=== PATIENT | female | born 1985 | race Caucasian/White ===

== ENCOUNTER 2017-07-26 07:17 | Inpatient (IN) | payer BC ==
--- NOTE | 2017-07-26 14:21 | HP ---
General Information - General Information Maternal Age: 31 Grav: 2 Para: 0 SAB: 0 IEA: 1 Estimated Due Date: 07/29/17 Determined By: Early Ultrasound Gestational Age in Weeks and Days: 39 Weeks and 4 Days Maternal Blood Type and Rh: O Positive - Results this Serology/RPR Result: Non-Reactive Rubella Result: Immune HBsAg Result: Negative HIV Result: Negative GBS Culture Result: Negative Past Medical History Pertinent Past Medical History: Non-Contributory Past Medical History Comment: Anxiety Pertinent Past Surgical History: See Records Past Surgical History Comment: wisdom teeth Pertinent Family History: Non-Contributory - Antepartal Records Antepartal Records: Reviewed, Uncomplicated Review of Systems Constitutional: Uncomfortable CV Complaint: No Respiratory: Shortness of Breath: No Gastrointestinal: No Nausea/Vomiting, Normal Bowel Movement Genitourinary: Bleeding, No Dysuria, No Leaking Fluid Musculoskeletal: Contractions Neurological: No Headache, No Visual Changes Movement: Normal Exam Allergies/Adverse Reactions: Allergies No Known Allergies Allergy (Verified 07/26/17 07:50) BP 122/75 T 98.6 HR 89 RR 18 O2 99 Lab Values - Entire Visit: pending - Measurements Height: 5 ft 5 in Weight: 181 lb Weight in lbs: 181 Body Mass Index (BMI): 30.1 Pre- Weight: 138 lb Weight Gained This : 43 lbs and 0 ozs - Exam Abdomen: No Upper Quadrant Pain Breast: Breast Exam Deferred Extremities: No Edema Heart: Normal Rhythm/Heart Sounds HEENT: No Significant Findings Lungs: Clear Bilaterally Rectal: Rectal Exam Deferred Reflexes: DTR 2+, - - no clonus - Cervical Exam 3cm/90/0 - Abdominal Exam Abdomen Exam: Non-Tender Abdomen Exam Comment: EFW 7.5lb - Membranes Membrane Status: Intact - Ultrasound/Biophysical Profile Ultrasound Status: Not Done EFM Findings - External Monitor Findings Baseline Heart Rate: 135 External Monitor Findings: Accelerations Present, No Pattern of Variable or Late Decelerations, Variability Moderate Contractions: Regular, Moderate - Q 2-4, Strong, 45-90 Seconds Assessment/Plan - Reason for Visit Reason for Visit: IUP @ 39+4 weeks gestation. IBOW. No sign metabolic acidemia. - Plan Plan: Early Labor Plan Comment: Admit to L&D. Patient desires IDA. Anticipate SVB - Date/Time of Admission Date of Admission: 07/26/17 Time of Admission: 14:05
[2017-07-26] MEDS ORDERED: OBEPIDURAL* 250 ML EPIDURAL ONE (14:25)
[2017-07-26 14:34] LABS: ABS Basophils 0.1 10^3/ul (0-0.2); ABS Eosinophils 0 10^3/ul (0-0.6); ABS Monocytes 0.6 10^3/ul (0-0.8); ABS Neutrophils 12.4 10^3/ul (1.5-7.7); ABS Nucleated RBC 0 10^3/ul; Eosinophil % 0.2 % (0-6); Hematocrit 35 % (35-47); Hemoglobin 11.4 g/dl (12.0-16.0); Lymphocyte % 7.4 % (25-47); Mean Corpuscular HGB Conc 33 g/dl (31-36); Mean Corpuscular Hemoglobin 27 pg (27-31); Mean Corpuscular Volume 83 fL (80-97); Nucleated Red Blood Cells % 0; Platelet Count 208 10^3/ul (150-450); Red Blood Count 4.23 10^6/ul (4.0-5.4); Red Cell Distribution Width 13 % (10.5-15); White Blood Count 14.1 10^3/ul (3.5-10.8)
[2017-07-26] MEDS ORDERED: Sodium Citrate/Citric Acid* 15 ML UDC PO PRN (15:06)
[2017-07-26] MEDS ORDERED: EPHEDrine (Pressors)* 50 MG/ML VIAL IV PUSH PRN ×2 (15:06)
[2017-07-26] MEDS ORDERED: Famotidine TAB* 20 MG PO PRN (15:06)
[2017-07-26] MEDS ORDERED: Phenylephrine IV* 40 MCG/ML 10 ML SYRINGE IV PUSH PRN ×2 (15:06)
[2017-07-26] MEDS ORDERED: OBEPIDURAL* 250 ML EPIDURAL SCH (16:00)
[2017-07-26] MEDS ORDERED: Sodium Bicarbonate 8.4% SYR* 10 ML SYRINGE ONE (16:31)
[2017-07-26] MEDS ORDERED: Lidocaine 2% EPI 1:200000 MPF* 20 ML VIAL ONE (16:31)
[2017-07-26] MEDS ORDERED: Nalbuphine* 20 MG/ML 1 ML VIAL IV PRN (17:00)
[2017-07-26] MEDS ORDERED: CEFOXITIN 2 GM IVPB ONE ×2 (17:00)
[2017-07-26] MEDS ORDERED: oxyCODONE TAB* 5 MG TAB PO PRN (17:00)
[2017-07-26] MEDS ORDERED: ceFOXitin(*) 2 GM in NS 0.9% 100 ML* 100 ML IVPB ONE (17:00)
[2017-07-26] MEDS ORDERED: DiMENhydriNATE IV* 50 MG/ML VIAL IV PUSH PRN (17:00)
[2017-07-26] MEDS ORDERED: Naloxone* 0.4 MG/ML 1 ML VIAL IV PRN (17:00)
[2017-07-26] MEDS ORDERED: OXYTOCIN* 10 UNITS/ML 1 ML VIAL ONE (17:05)
[2017-07-26] MEDS ORDERED: Morphine PF AMP (0.5MG/ML)* 5 MG/10 ML AMP ONE (17:05)
[2017-07-26] MEDS ORDERED: Phenylephrine IV* 40 MCG/ML 10 ML SYRINGE ONE (17:40)
[2017-07-26] MEDS ORDERED: Witch Hazel PAD* JAR TOPICAL PRN (17:43)
[2017-07-26] MEDS ORDERED: Dibucaine 1% 28.35 GM TUBE PR PRN (17:43)
[2017-07-26] MEDS ORDERED: Glycerin ADULT SUPP PR PRN (17:43)
[2017-07-26] MEDS ORDERED: Zolpidem TAB* 5 MG PO PRN (17:43)
[2017-07-26] MEDS ORDERED: Ondansetron INJ* 2 MG/ML VIAL ONE (17:52)
[2017-07-26] MEDS ORDERED: Lidocaine 1% MPF* 2 ML VIAL ONE (19:17)
[2017-07-26] MEDS: Ketorolac INJ* 30 MG/ML 1 ML VIAL IV PRN (20:13)
[2017-07-26] MEDS: Simethicone TAB* 80 MG TAB.CHEW PO SCH (20:13)
[2017-07-26] MEDS: Docusate CAP* 100 MG PO SCH (20:13)
[2017-07-27] MEDS: Ketorolac INJ* 30 MG/ML 1 ML VIAL IV PRN ×3 (02:18→14:50)
[2017-07-27 06:29] LABS: ABS Basophils 0 10^3/ul (0-0.2); ABS Eosinophils 0.1 10^3/ul (0-0.6); ABS Lymphocytes 1.9 10^3/ul (1.0-4.8); ABS Monocytes 0.8 10^3/ul (0-0.8); ABS Neutrophils 9.6 10^3/ul (1.5-7.7); ABS Nucleated RBC 0 10^3/ul; Eosinophil % 0.8 % (0-6); Hematocrit 26 % (35-47); Hemoglobin 8.7 g/dl (12.0-16.0); Lymphocyte % 15.1 % (25-47); Mean Corpuscular HGB Conc 34 g/dl (31-36); Mean Corpuscular Hemoglobin 28 pg (27-31); Mean Corpuscular Volume 82 fL (80-97); Mean Platelet Volume 7.8 um3 (7.4-10.4); Nucleated Red Blood Cells % 0; Platelet Count 166 10^3/ul (150-450); Red Blood Count 3.12 10^6/ul (4.0-5.4); Red Cell Distribution Width 13 % (10.5-15); White Blood Count 12.4 10^3/ul (3.5-10.8)
--- NOTE | 2017-07-27 08:42 | PTEDU ---
Patient Name: ZHOU PONCE YONATHAN PONCETH selected video: Never Ever Shake a Baby to view on 07/27/2017 at 8:42:10 AM from [id number]
[2017-07-27] MEDS ORDERED: Acetaminophen TAB* 325 MG PO PRN (09:00)
[2017-07-27] MEDS: Silver Sulfadiazine 1%* 20 GM TOPICAL SCH (09:00)
[2017-07-27] MEDS ORDERED: oxyCODONE/Acetamin 5/325 MG* TAB PO PRN (09:00)
--- NOTE | 2017-07-27 09:03 | PTEDU ---
Patient Name: ZHOU PONCE ROSARIOJENI CONNORZABETH selected video: BBOB: Nurturing Your Gorgeous &Growing Baby by to view on 07/27/2017 at 9:02:59 AM from [id number]
[2017-07-27] MEDS: Simethicone TAB* 80 MG TAB.CHEW PO SCH ×4 (09:17→20:59)
[2017-07-27] MEDS: Ferrous Gluconate TAB* 324 MG TAB PO SCH ×2 (09:18→20:58)
[2017-07-27] MEDS: Docusate CAP* 100 MG PO SCH ×2 (09:18→14:18)
[2017-07-27] MEDS: oxyCODONE/Acetamin 5/325 MG* TAB PO PRN ×3 (11:10→21:57)
[2017-07-27] MEDS: Ibuprofen TAB* 600 MG PO PRN (21:00)
[2017-07-28] MEDS: Ibuprofen TAB* 600 MG PO PRN ×4 (02:09→20:33)
[2017-07-28] MEDS: oxyCODONE/Acetamin 5/325 MG* TAB PO PRN ×5 (02:09→20:34)
[2017-07-28] MEDS: Docusate CAP* 100 MG PO SCH ×4 (08:13→20:33)
[2017-07-28] MEDS: Simethicone TAB* 80 MG TAB.CHEW PO SCH ×4 (08:15→20:33)
[2017-07-28] MEDS: Ferrous Gluconate TAB* 324 MG TAB PO SCH ×2 (08:15→20:33)
[2017-07-28] MEDS: Silver Sulfadiazine 1%* 20 GM TOPICAL SCH (09:00)
[2017-07-29] MEDS: oxyCODONE/Acetamin 5/325 MG* TAB PO PRN ×3 (00:49→09:03)
[2017-07-29] MEDS: Ibuprofen TAB* 600 MG PO PRN (04:15)
[2017-07-29 08:11] VITALS: BP 102/66
[2017-07-29] MEDS: Docusate CAP* 100 MG PO SCH (09:02)
[2017-07-29] MEDS: Simethicone TAB* 80 MG TAB.CHEW PO SCH (09:02)
[2017-07-29] MEDS: Ferrous Gluconate TAB* 324 MG TAB PO SCH (09:02)
--- NOTE | 2017-07-31 22:07 | OP ---
CC: Dayanara Ruano CNM, [facility] * DATE OF OPERATION: 07/26/17 - ROOM #115 DATE OF : 87 SURGEON: Brien Swanson MD MANAGER COMPLETIONS SURGEON: Dayanara Ruano, certified nurse therapeutic recreation leader. ANESTHESIA: Epidural. PRE-OP DIAGNOSIS: Intrauterine at 39 weeks with a category 3 tracing in labor. POST-OP DIAGNOSIS: Intrauterine at 39 weeks with a category 3 tracing in labor. OPERATIVE PROCEDURE: Primary low-transverse section. ESTIMATED BLOOD LOSS: 700 cc. SPECIMENS: There were no specimens sent to pathology. FLUIDS: She received 1500 cc of IV crystalloid fluid. URINE OUTPUT: Clear. FINDINGS: Delivery of a male infant over meconium fluid with Apgars of 9 and 9 , weighing 7 pounds and 3 ounces. The placenta was grossly intact and was sent to pathology. The uterus, adnexa, bowel, and bladder were all within normal limits and there were no complications. DESCRIPTION OF PROCEDURE: The patient was taken to the operating room where she was identified. She was placed on the operating room table where an epidural anesthetic was obtained without difficulty. She was then placed in the supine position with leftward tilt, prepped and draped in a normal sterile fashion. A Pfannenstiel skin incision was made with a knife and carried through to underlying layer of fascia. The facia was nicked in the midline and extended laterally with curved Donald scissors. The fascia was then grasped superiorly and inferiorly with Vivek clamps and dissected off sharply from the rectus muscle. The rectus muscle was in the midline bluntly. The peritoneum was identified, grasped with pickups, and entered sharply with Metzenbaum scissors and extended superiorly and inferiorly sharply. A bladder blade was inserted in the patient's abdomen. A bladder flap was then created using Metzenbaum scissors over which a bladder blade was then re-inserted. A low transverse uterine incision was made with a knife and extended laterally with Band-Aid scissors. The 's head was then grasped and delivered atraumatically. The nose and mouth were suctioned. The rest of the infant's body was then delivered. The cord was clamped and cut and the infant was handed off to the awaiting financial management. Cord bloods were obtained. The placenta was removed manually and sent to pathology. The uterus was then exteriorized, cleared off all clot and debris using moist laparotomy sponges. The uterine incision was then closed using 0 Polysorb suture in a running locked fashion with a second imbricating layer of 0 Polysorb suture with good hemostasis noted. The uterus was then returned to the patient's abdomen. The gutters were then cleared off all clots and debris using moist laparotomy sponges and irrigation fluid. All the fluid and sponges were removed from the patient's abdomen. The uterine incision was noted to be hemostatic. The peritoneum was then closed using 3-0 Polysorb suture in a running fashion. The fascia was closed using 0 Polysorb suture in a running fashion and the skin was closed with 4-0 Monocryl subcuticular stitch. The patient tolerated the procedure well. Sponge, lap, and needle counts were correct x2. She was then transferred to the recovery room area in stable condition. [id number]/[facility] #: [id number] MARTIR
== END 2017-07-29 09:53 | disposition home or self-care (01) | DRG 540 ==
LOC: MCHOBOUT 07:17 → MCHOB 14:06
PROVIDERS: ADMIT Midwife; ATTEND Obstetrics & Gynecology
PROC: 10D00Z1 Extraction of Products of Conception, Low, Open Approach (ICD-10-PCS; principal; 2017-07-26 16:32)
DX: O76 Abnormality in fetal heart rate and rhythm complicating labor and delivery (principal); F41.9 Anxiety disorder, unspecified; O99.344 Other mental disorders complicating childbirth; O77.0 Labor and delivery complicated by meconium in amniotic fluid; Z3A.39 39 weeks gestation of pregnancy; Z37.0 Single live birth
CPT/HCPCS: 36415; 85025; 86850; 86900; 86901; 88307; A9270-GY; J0694; J1240; J1885; J2300; J2405; J2590

== ENCOUNTER 2019-11-20 06:11 | Inpatient (IN) ==
[2019-11-20] MEDS ORDERED: ceFOXitin 2 GM IVPREMIX 2 GM/50 ML BAG ONE (06:43)
[2019-11-20 07:03] LABS: Urine Benzodiazepine Screen None Detected (None Detect); Urine Opiates Screen None Detected (None Detect)
[2019-11-20] MEDS ORDERED: Sodium Citrate/Citric Acid LIQ 15 ML UDC ONE (07:40)
[2019-11-20] MEDS ORDERED: Morphine PF AMP (0.5MG/ML) 5 MG/10 ML AMP ONE (07:45)
[2019-11-20] MEDS ORDERED: Phenylephrine 40 mcg/mL 10mL (400mcg) SYRINGE ONE (08:16)
[2019-11-20] MEDS ORDERED: Oxytocin 10 UNITS/ML 1 ML VIAL ONE (08:16)
[2019-11-20] MEDS ORDERED: EPHEDrine (Pressors) 50 MG/ML VIAL ONE (08:16)
[2019-11-20] MEDS ORDERED: Naloxone 0.4 mg VIAL 0.4 mg/ml 1 ml VIAL IV PRN ×2 (08:21→08:23)
[2019-11-20] MEDS ORDERED: fentaNYL 100 mcg/2 ml 50 MCG/ML VIAL IV PRN (08:21)
[2019-11-20] MEDS ORDERED: Ondansetron 4 mg VIAL 2 MG/ML 2 ml VIAL IV PRN ×2 (08:21→08:23)
[2019-11-20] MEDS ORDERED: oxyCODONE/Acetamin 5/325 mg TAB PO PRN (08:23)
[2019-11-20] MEDS ORDERED: DiMENhydriNATE IV 50 mg/ml 1 ml VIAL IV PUSH PRN (08:23)
[2019-11-20] MEDS ORDERED: Methylene Blue 0.5 % 50 MG/10 ML AMP IV ONE ×2 (08:45→08:46)
[2019-11-20] MEDS ORDERED: Tetan/Diph/Pertus SYR(Tdap) 0.5 ML SYR(BOOSTRIX) use SYR contains LATEX IM ONE (08:53)
[2019-11-20] MEDS ORDERED: Glycerin ADULT 2.4 gm SUPP PR PRN (08:53)
[2019-11-20] MEDS ORDERED: Witch Hazel PAD JAR TOPICAL PRN (08:53)
[2019-11-20] MEDS ORDERED: Dibucaine 1% OINT 28.35 GM TUBE PR PRN (08:53)
[2019-11-20] MEDS ORDERED: Lactated Ringers 1000 ml BAG 1,000 ML IV SCH (09:00)
[2019-11-20] MEDS ORDERED: Oxytocin in LR 20 UNITS/1,000 ML BAG IVPB SCH (09:00)
[2019-11-21 07:10] LABS: ABS Eosinophils 0.1 10^3/ul (0-0.6); ABS Lymphocytes 1.1 10^3/ul (1.0-4.8); ABS Monocytes 0.5 10^3/ul (0-0.8); ABS Neutrophils 7.2 10^3/ul (1.5-7.7); Eosinophil % 1.3 %; Hematocrit 27 % (35-47); Hemoglobin 8.8 g/dL (12.0-16.0); Lymphocyte % 11.9 %; Mean Corpuscular HGB Conc 33 g/dL (31-36); Mean Corpuscular Hemoglobin 25 pg (27-31); Mean Corpuscular Volume 75 fL (80-97); Mean Platelet Volume 7.7 fL (7.4-10.4); Platelet Count 177 10^3/uL (150-450); Red Blood Count 3.56 10^6 /uL (3.70-4.87); Red Cell Distribution Width 15 % (10-15); White Blood Count 8.9 10^3/uL (3.5-10.8)
[2019-11-22 07:32] VITALS: BP 115/64
[2019-11-22] MEDS ORDERED: Tetan/Diph/Pertus SYR(Tdap) 0.5 ML SYR(BOOSTRIX) use SYR contains LATEX IM ONE (15:38)
[2019-11-23] MEDS ORDERED: Scopolamine PATCH Remove NOTE PATCH OFF ONE (08:23)
== END 2019-11-22 16:25 | disposition home or self-care (01) | DRG 540 ==
LOC: MCHOB 06:11
PROVIDERS: ADMIT Obstetrics & Gynecology; ATTEND Obstetrics & Gynecology